=== PATIENT | female | born 1970 | race American Indian/Alaskan Native ===

== ENCOUNTER 2018-02-23 00:08 | Emergency (ER) | payer OTHER ==
[2018-02-23] MEDS ORDERED: TYLENOL ONE (01:08)
[2018-02-23] MEDS ORDERED: TYLENOL PO ONE (01:12)
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
[2018-02-23 05:10] VITALS: BP 118/84
== END 2018-02-23 05:08 | disposition home or self-care (01) ==
LOC: ED 00:08
DX: S39.012A Strain of muscle, fascia and tendon of lower back, initial encounter (principal); I10 Essential (primary) hypertension; I50.9 Heart failure, unspecified; K21.9 Gastro-esophageal reflux disease without esophagitis; G43.909 Migraine, unspecified, not intractable, without status migrainosus; F32.9 Major depressive disorder, single episode, unspecified; J45.909 Unspecified asthma, uncomplicated; G89.29 Other chronic pain; Z90.710 Acquired absence of both cervix and uterus; Z88.0 Allergy status to penicillin; Z88.1 Allergy status to other antibiotic agents; V89.2XXA Person injured in unspecified motor-vehicle accident, traffic, initial encounter; Y93.89 Activity, other specified; Y92.89 Other specified places as the place of occurrence of the external cause; Y99.8 Other external cause status
CPT/HCPCS: 99282

== ENCOUNTER 2018-08-19 23:32 | Emergency (ER) | payer OTHER ==
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
[2018-08-20 04:44] VITALS: BP 109/69
== END 2018-08-20 04:45 | disposition home or self-care (01) ==
LOC: ED 23:32
DX: S60.032A Contusion of left middle finger without damage to nail, initial encounter (principal); I11.0 Hypertensive heart disease with heart failure; I50.9 Heart failure, unspecified; K21.9 Gastro-esophageal reflux disease without esophagitis; G43.909 Migraine, unspecified, not intractable, without status migrainosus; F32.9 Major depressive disorder, single episode, unspecified; W22.8XXA Striking against or struck by other objects, initial encounter; Y93.89 Activity, other specified; Y92.89 Other specified places as the place of occurrence of the external cause; Y99.8 Other external cause status

== ENCOUNTER 2018-09-13 23:25 | Emergency (ER) | payer SELFPAY ==
[2018-09-14 00:06] VITALS: BP 132/78
--- NOTE | 2018-09-14 01:30 | XRay Report ---
FINAL REPORT EXAM: XR FOOT 2V RT HISTORY: right foot pain, right lateral foot pain post fall x1 week ago TECHNIQUE: Two views of the right foot PRIORS: None. FINDINGS: The bones are normally aligned and mineralized. The joint spaces are well-preserved. There is no evid ence of acute fracture. The soft tissues are unremarkable. There is a small plantar calcaneal spur. IMPRESSION: No evidence of acute fracture or subluxation.
--- NOTE | 2018-09-14 01:31 | XRay Report ---
FINAL REPORT EXAM: XR ANKLE 2V RT HISTORY: Right ankle pain, right lateral ankle pain post fall x1 week ago TECHNIQUE: Two views of the right ankle PRIORS: None. FINDINGS: The bones are normally aligned and mineralized. The joint spaces are well-preserved. There is no evid ence of acute fracture. The soft tissues are unremarkable. There is a small plantar calcaneal spur. IMPRESSION: No evidence of acute fracture or subluxation. Small plantar calcaneal spur
--- NOTE | 2018-09-14 01:35 | XRay Report ---
FINAL REPORT EXAM: XR KNEE 3V RT HISTORY: right knee pain, right knee pain post fall x1 week ago TECHNIQUE: Four views of the right knee PRIORS: None. FINDINGS: The bones are normally aligned and mineralized. There is mild narrowing of the medial joint with mild osteophyte formation and beaking of the medial tibial spine. There is a small osteophyte on the infe rior patella. The lateral joint is well preserved. There is no evidence of acute fracture. The soft t issues are unremarkable. IMPRESSION: No evidence of acute fracture or subluxation. 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
[2018-09-14] MEDS ORDERED: TORADOL IM ONE (03:36)
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
== END 2018-09-14 05:15 | disposition home or self-care (01) ==
LOC: ED 23:25
DX: G89.29 Other chronic pain (principal); M25.561 Pain in right knee; M25.571 Pain in right ankle and joints of right foot; M79.671 Pain in right foot; I11.0 Hypertensive heart disease with heart failure; I50.9 Heart failure, unspecified; G43.909 Migraine, unspecified, not intractable, without status migrainosus; F32.9 Major depressive disorder, single episode, unspecified; F41.9 Anxiety disorder, unspecified; F45.9 Somatoform disorder, unspecified; J45.909 Unspecified asthma, uncomplicated; Z90.710 Acquired absence of both cervix and uterus; Z88.8 Allergy status to other drugs, medicaments and biological substances; Z88.0 Allergy status to penicillin; Z91.041 Radiographic dye allergy status; Z88.1 Allergy status to other antibiotic agents; Z88.7 Allergy status to serum and vaccine
CPT/HCPCS: 73562; 73600; 73620; 96372; 99283; J1885

== ENCOUNTER 2018-10-21 23:20 | Emergency (ER) | payer OTHER ==
[2018-10-21 23:33] VITALS: BP 109/63
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
== END 2018-10-22 03:06 | disposition home or self-care (01) ==
LOC: ED 23:20
DX: H57.11 Ocular pain, right eye (principal); I11.0 Hypertensive heart disease with heart failure; K21.9 Gastro-esophageal reflux disease without esophagitis; G43.909 Migraine, unspecified, not intractable, without status migrainosus; J45.909 Unspecified asthma, uncomplicated; Z88.0 Allergy status to penicillin; Z88.1 Allergy status to other antibiotic agents; Z91.041 Radiographic dye allergy status; Z90.710 Acquired absence of both cervix and uterus
CPT/HCPCS: 99282

== ENCOUNTER 2018-12-21 01:48 | Emergency (ER) | payer OTHER ==
[2018-12-21 02:00] VITALS: BP 116/85
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
== END 2018-12-21 04:20 | disposition home or self-care (01) ==
LOC: ED 01:48
DX: T23.001A Burn of unspecified degree of right hand, unspecified site, initial encounter (principal); I11.0 Hypertensive heart disease with heart failure; I50.9 Heart failure, unspecified; K21.9 Gastro-esophageal reflux disease without esophagitis; G43.909 Migraine, unspecified, not intractable, without status migrainosus; J45.909 Unspecified asthma, uncomplicated; X08.8XXA Exposure to other specified smoke, fire and flames, initial encounter; Y93.89 Activity, other specified; Y92.89 Other specified places as the place of occurrence of the external cause; Y99.8 Other external cause status
CPT/HCPCS: 99282

== ENCOUNTER 2019-02-02 08:12 | Emergency (ER) | payer SELFPAY ==
[2019-02-02 08:16] VITALS: BP 125/82
--- NOTE | 2019-02-02 09:19 | XRay Report ---
Right hand 3 views INDICATION: Right hand pain following injury IMPRESSION: No fracture or subluxation of the right hand. Signer Name: Tonny Hernandez MD Signed: 02/02/2019 9:15 AM Workstation Name: [id number]
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
== END 2019-02-02 09:52 | disposition home or self-care (01) ==
LOC: ED 08:12
DX: S60.221A Contusion of right hand, initial encounter (principal); I11.0 Hypertensive heart disease with heart failure; I50.9 Heart failure, unspecified; K21.9 Gastro-esophageal reflux disease without esophagitis; F32.9 Major depressive disorder, single episode, unspecified; F41.9 Anxiety disorder, unspecified; J45.909 Unspecified asthma, uncomplicated; Z90.710 Acquired absence of both cervix and uterus; Z88.8 Allergy status to other drugs, medicaments and biological substances; Z91.041 Radiographic dye allergy status; Z88.0 Allergy status to penicillin; Z88.7 Allergy status to serum and vaccine; X58.XXXA Exposure to other specified factors, initial encounter; Y93.89 Activity, other specified; Y92.89 Other specified places as the place of occurrence of the external cause; Y99.8 Other external cause status

== ENCOUNTER 2019-02-17 07:55 | Emergency (ER) | payer SELFPAY ==
[2019-02-17 08:01] VITALS: BP 121/88
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
== END 2019-02-17 09:42 | disposition left against medical advice (07) ==
LOC: ED 07:55
DX: S60.221A Contusion of right hand, initial encounter (principal); S60.222A Contusion of left hand, initial encounter; S00.431A Contusion of right ear, initial encounter; M54.89 Other dorsalgia; V49.3XXA Car occupant (driver) (passenger) injured in unspecified nontraffic accident, initial encounter; Y93.89 Activity, other specified; Y92.89 Other specified places as the place of occurrence of the external cause; Y99.8 Other external cause status
CPT/HCPCS: 99282

== ENCOUNTER 2019-03-09 12:33 | Emergency (ER) | payer OTHER ==
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
[2019-03-09 16:11] VITALS: BP 118/80
--- NOTE | 2019-03-09 16:29 | XRay Report ---
HISTORY: Trauma right hand COMPARISON: None. TECHNIQUE: AP lateral and obliques views FINDINGS: Bones: No fracture or dislocation. Joint spaces: Maintained. Soft tissues: No significant abnormality. Additional findings: None. IMPRESSION: 1. No significant abnormality. Signer Name: Adam Garzon MD Signed: 03/09/2019 4:25 PM Workstation Name: [id number]
== END 2019-03-09 16:11 | disposition home or self-care (01) ==
LOC: ED 12:33
DX: S60.221A Contusion of right hand, initial encounter (principal); W22.01XA Walked into wall, initial encounter; Y93.89 Activity, other specified; Y92.89 Other specified places as the place of occurrence of the external cause; Y99.8 Other external cause status

== ENCOUNTER 2020-08-16 01:25 | Emergency (ER) | payer SELFPAY ==
[2020-08-16 02:47] VITALS: BP 118/80
[2020-08-16] MEDS ORDERED: KETOROLAC 60 MG/2 ML INJ IM ONE (02:49)
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
--- NOTE | 2020-08-16 03:33 | XRay Report ---
LEFT HIP 2 VIEWS INDICATION / CLINICAL INFORMATION: Fall COMPARISON: None available. FINDINGS: BONES / JOINT(S): No acute fracture or subluxation. No significant arthritis. SOFT TISSUES: No significant abnormality. ADDITIONAL FINDINGS: None. Signer Name: Chivo Ramírez MD Signed: 08/16/2020 3:29 AM Workstation Name: [id number]
--- NOTE | 2020-08-16 03:34 | XRay Report ---
Left rib series 3 views Indication: Fall Findings: There is no fracture or other acute radiographic abnormality of the left ribs. Lungs are clear. There is no pneumothorax. Signer Name: Chivo Ramírez MD Signed: 08/16/2020 3:30 AM Workstation Name: [id number]
== END 2020-08-16 04:26 | disposition home or self-care (01) ==
LOC: ED 01:25
DX: S76.012A Strain of muscle, fascia and tendon of left hip, initial encounter (principal); S70.02XA Contusion of left hip, initial encounter; I11.0 Hypertensive heart disease with heart failure; I50.9 Heart failure, unspecified; K21.9 Gastro-esophageal reflux disease without esophagitis; G43.909 Migraine, unspecified, not intractable, without status migrainosus; R56.9 Unspecified convulsions; F32.9 Major depressive disorder, single episode, unspecified; J45.909 Unspecified asthma, uncomplicated; Z90.710 Acquired absence of both cervix and uterus; Z98.890 Other specified postprocedural states; Z79.1 Long term (current) use of non-steroidal anti-inflammatories (NSAID); Z79.899 Other long term (current) drug therapy; Z88.0 Allergy status to penicillin; Z88.8 Allergy status to other drugs, medicaments and biological substances; W01.0XXA Fall on same level from slipping, tripping and stumbling without subsequent striking against object, initial encounter; Y93.89 Activity, other specified; Y92.89 Other specified places as the place of occurrence of the external cause; Y99.8 Other external cause status